=== PATIENT | male | born 1980 | race Caucasian/White ===

== ENCOUNTER 2023-11-26 23:33 | Emergency (ER) | payer OTHER, SELFPAY ==
[2023-11-26 23:37] VITALS: BP 162/95
--- NOTE | 2023-11-27 01:37 | ED.GENMED ---
History of Present Illness
<JEANIE Nieves - Last Filed: 11/27/23 02:45>
General
Chief Complaint: Skin Problem
Source: patient
Exam Limitations: none
Time Seen by Provider: 11/27/23 01:37
Nursing documentation reviewed up to this point in time: agreed with
Travel History
Have you had any contact with someone who has COVID-19?: No
Do you have any symptoms of coronavirus? Fever > 100 degrees, chills, cough, shortness of breath, sore throat, loss of taste or smell, muscle aches, or headache?: No
History of Present Illness
History of Present Illness:
This is a 42 YOM with PMhx of brain tumor, seizure disorder, hemorrhoids presenting with skin tenderness and pain on L gluteal fold x 1 week. Pt noticed discomfort in rectal area and thought it might be a hemorrhoid bothering him. He tried epsom
salt soaks for the area, approx 20 mins a few times this week without relief. Pt also used hemorrhoid cream on rectum without relief. Pt felt worsening pain today and palpated the area, with notable pain to touch. He also visualized the area today
and noticed localized erythema. Pt is uncomfortable to sit today, which is new since the discomfort began. PE significant for fluctuant and indurated mass with localized erythema on L gluteal cleft. Pt denied fevers, BAIRD, dizziness, vision changes,
chest pain, SOB, N/V/D/C, abd pain, MSK weakness, sensory changes.
Past History
<JAENIE Nieves - Last Filed: 11/27/23 02:45>
Past History
ED Past Medical History: Other (Denies: sciatica, kidney stones, gallstones)
ED Past Surgical History: None
Social History
Tobacco: Smoker
Alcohol: None
Drug: None
Employment: Employed
Family History
Family History: Other (bother appendicitis age 37)
Review of Systems
<JEANIE Nieves - Last Filed: 11/27/23 02:45>
Review of Systems
Allergies reviewed?: Yes
All Other Systems: ROS reviewed and negative except as documented in HPI and ROS
Constitutional: Reports no symptoms
EENT: Reports no symptoms
Respiratory: Reports no symptoms
Cardiac: Reports no symptoms
ABD/GI: Reports no symptoms
: Reports no symptoms
Musculoskeletal: Reports no symptoms
Skin: Reports other (Redness, painful mass on L gluteal cleft)
Neurological: Reports no symptoms
Hematologic/Lymphatic: Reports no symptoms
Psychiatric: Reports no symptoms
Phy Exam
<JEANIE Nieves - Last Filed: 11/27/23 02:45>
General Physical Exam
General Presentation: well appearing
General age: appears stated age
General Skin: warm and dry
General Habitus: normal
General Mental: alert
General Hydration: appears well hydrated
ENT Exam
ENT Exam: swallowing well
Cardiovascular Exam
Cardiovascular Exam: regular rate/rhythm, no edema, no gallop, no JVD, no murmur and normal peripheral pulses
Pulmonary Exam
Pulmonary Exam: lungs clear, no respiratory distress, no rales, no crackles, no rhonchi, no stridor, no wheezing and no cough
Gastrointestinal Exam
Gastrointestinal Exam: normal bowel sounds, non tender, soft, no pulsatile mass, non distended and no masses
Rectal Exam: hemorrhoids and tender (L gluteal cleft TTP, localized erythema, fluctuance, induration)
Neurological Exam
Neurological Exam: alert, oriented x3, no motor deficits, no sensory deficits, speech normal and normal gait
Musculoskeletal Exam
Musculoskeletal Exam: full ROM and neuro vasc intact
Skin Exam
Skin Exam: normal color, warm/dry and erythema (Localized to L gluteal cleft)
Psychiatric Exam
Psychiatric Exam: normal mood/affect
Course
<ST LizbethPA - Last Filed: 11/27/23 02:45>
Vital Signs
Initial and Last Documented VS:
Initial Vital Signs
Temp Pulse Resp BP Pulse Ox
98.6 F 109 20 162/95 96
11/26/23 23:37 11/26/23 23:37 11/26/23 23:37 11/26/23 23:37 11/26/23 23:37
Last Documented Vital Signs
Temp Pulse Resp BP Pulse Ox
98.2 F 91 16 142/85 97
11/27/23 02:39 11/27/23 02:39 11/27/23 02:39 11/27/23 02:39 11/27/23 02:39
<Anthony Perez, DO - Last Filed: 11/27/23 03:09>
Vital Signs
Initial and Last Documented VS:
Initial Vital Signs
Temp Pulse Resp BP Pulse Ox
98.6 F 109 20 162/95 96
11/26/23 23:37 11/26/23 23:37 11/26/23 23:37 11/26/23 23:37 11/26/23 23:37
Last Documented Vital Signs
Temp Pulse Resp BP Pulse Ox
98.2 F 91 16 142/85 97
11/27/23 02:39 11/27/23 02:39 11/27/23 02:39 11/27/23 02:39 11/27/23 02:39
<Anthony Perez, DO - Last Filed: 11/27/23 03:09>
Incision/Drainage/Joint Aspiration
Left Buttock:
Anethesia: 1% Lidocaine with Epi
Preparation: cleaned with Betadine
Type of procedure: incise and drain
Nature of site: abscess
Description of abscess: greater than 3cm
Loculations broken up: Yes
How much fluid was obtained?: number in mls (5)
Fluid description: purulent and foul smelling
Treatment: left open for drainage and antibiotics started
<JEANIE Nieves - Last Filed: 11/27/23 02:45>
MDM/Problems Addressed
Differential Diagnosis Includes:
Cellulitis, abscess
MDM/Problems Addressed:
42 YOM presenting with tenderness on L gluteal cleft
<JEANIE Nieves - Last Filed: 11/27/23 02:45>
*Pulse Oximetry
Patient hypoxic: no
*Critical Care Note
Total Time (30-74mins, 75-104mins- exclusive of procedures): Not Applicable
ED Attending Note
<JEANIE Nieves - Last Filed: 11/27/23 02:45>
-
Portions of this chart may have been created with voice recognition software.� Occasional wrong word or��sound alike� substitutions may have occurred due to the inherent limitations of voice recognition software.
<Anthony Perez, - Last Filed: 11/27/23 03:09>
ED Attending Note
Patient seen and examined by attending physician: Yes
I performed the substantive portion of visit, reviewed & personally made and approve the management plan that is documented in note by myself or RENETTA.: Yes
I performed a history and physical exam of patient and discussed management with resident, I reviewed resident's note and agree with documented findings and plan of care.: Yes
ED Attending Note:
I have reviewed and agree with history and treatment plan by Indiana Duarte. My exam revealed gluteal abscess on left gluteal cleft. Incision and drainage performed, with purulent drainage. Will treat with Bactrim.
Discharge Plan
Departure
Patient Disposition: Home (Routine Discharge)
Date of Disposition: 11/27/23
Time of Disposition: 03:07
Patient with high blood pressure during this ER visit?: Yes
Condition: Good
Discharge Problem:
Abscess of buttock, left
Instructions: BLOOD PRESSURE, Skin Abscess
Prescriptions:
New
sulfamethoxazole-trimethoprim [Bactrim DS] 800-160 mg tablet
1 tab PO Q12H 10 Days Qty: 20 0RF
No Action
Dilantin:
200 mg PO BID
Referrals:
Ok Cassidy, DO [Family Provider] -
Interventions
Interventions:
*Risk Screen - Suicide Last Done: 11/26/23 23:37
*General Assessment Last Done: 11/26/23 23:37
*Neglect/Abuse Screening Last Done: 11/26/23 23:37
ED- Fall Risk Assessment Last Done: 11/26/23 23:37
*ED COVID-19 Vaccine History Last Done: 11/26/23 23:37
ED-Skin Assessment Last Done: 11/27/23 02:39
[2023-11-27 02:37] VITALS: BMI 26.2
[2023-11-27 02:39] VITALS: BP 142/85
[2023-11-27] MEDS: BACTRIM DS 800 MG/160 MG 1 TABLET PO (03:20)
== END 2023-11-27 03:26 | disposition home or self-care (01) ==
LOC: EMR 23:33
PROVIDERS: EMERGENCY PHYSICIAN Emergency Medicine; FAMILY PHYSICIAN Family Medicine
DX: L02.31 Cutaneous abscess of buttock (principal); F17.200 Nicotine dependence, unspecified, uncomplicated; G40.909 Epilepsy, unspecified, not intractable, without status epilepticus; Z87.19 Personal history of other diseases of the digestive system
CPT/HCPCS: 99282; 10060